=== PATIENT | female | born 1985 | race African-American/Black ===

== ENCOUNTER 2017-12-29 17:03 | Emergency (ER) | payer SELFPAY ==
[~2017-12-29] VITALS: Ht 165.1 cm; Wt 109.3 kg
[2017-12-29 17:30] LABS: BILIRUBIN,URINE NEGATIVE (NEG); CLARITY,URINE CLEAR; COLOR,URINE YELLOW; NITRITE,URINE NEGATIVE (NEG); PH,URINE 6.5; PROTEIN,URINE NEGATIVE (NEG-TRACE)
--- NOTE | 2017-12-29 17:33 | PHYS DOC ---
Past Medical History Past Medical History: Diabetes-Type II, Hypertension Past Surgical History: Alcohol Use: None Drug Use: None Adult General Chief Complaint Chief Complaint: VAGINAL BLEEDING HPI HPI Patient is a 32 year old female with history of hypertension, diabetes type 2, who presents today complaining of vaginal bleeding for 2 weeks. Patient states she goes through 4 tampons per day. Patient denies any abdominal pain. Denies any nausea vomiting. She states sometimes she passes clots. She states she is in a lesbian relationship hence is not . Denies any concerns for STDs. Patient denies being on any hormones, she states the last time she took control was 1 year ago. Review of Systems Review of Systems Constitutional: Denies fever or chills [] Eyes: Denies change in visual acuity, redness, or eye pain [] HENT: Denies nasal congestion or sore throat [] Respiratory: Denies cough or shortness of breath [] Cardiovascular: No additional information not addressed in HPI [] GI: Reports vaginal bleeding for 2 weeks. Denies abdominal pain, nausea, vomiting, bloody stools or diarrhea [] : Denies dysuria or hematuria [] Musculoskeletal: Denies back pain or joint pain [] Integument: Denies rash or skin lesions [] Neurologic: Denies headache, focal weakness or sensory changes [] All other systems were reviewed and found to be within normal limits, except as documented in this note. Allergies Allergies Allergies Coded Allergies Type Severity Reaction Last Updated Verified No Known Drug Allergies 12/29/17 No Physical Exam Physical Exam Constitutional: Well developed, well nourished, no acute distress, non-toxic appearance. [] HENT: Normocephalic, atraumatic, bilateral external ears normal, oropharynx moist, no oral exudates, nose normal. [] Eyes: PERRLA, EOMI, conjunctiva normal, no discharge. [] Neck: Normal range of motion, no tenderness, supple, no stridor. [] Cardiovascular:Heart rate regular rhythm, no murmur [] Lungs & Thorax: Bilateral breath sounds clear to auscultation [] Abdomen: Bowel sounds normal, soft, no tenderness, no masses, no pulsatile masses. [] Pelvic exam External pelvic appears normal, cervix is not well visualized due to body habitus, no adnexal tenderness, trace amount of brownish discharge in the vaginal vault suspicious of spotting. No CMT. Skin: Warm, dry, no erythema, no rash. [] Back: No tenderness, no CVA tenderness. [] Extremities: No tenderness, no cyanosis, no clubbing, ROM intact, no edema. [] Neurologic: Alert and oriented X 3, normal motor function, normal sensory function, no focal deficits noted. [] Psychologic: Affect normal, judgement normal, mood normal. [] Current Patient Data Vital Signs Vital Signs Date Time Temp Pulse Resp B/P (MAP) Pulse Ox O2 Delivery O2 Flow Rate FiO2 12/29/17 19:01 74 16 109/63 (78) 98 Room Air 12/29/17 17:14 98.2 98.2 Lab Values Laboratory Tests Test 12/29/17 07:24 12/29/17 17:20 12/29/17 18:05 Urine Collection Type Clean catch Urine Color Yellow Urine Clarity Clear Urine pH 6.5 Urine Specific [place] 1.020 Urine Protein Negative mg/dL (NEG-TRACE) Urine Glucose (UA) Negative mg/dL (NEG) Urine Ketones (Stick) Negative mg/dL (NEG) Urine Blood Negative (NEG) Urine Nitrite Negative (NEG) Urine Bilirubin Negative (NEG) Urine Urobilinogen Dipstick 1.0 mg/dL (0.2 mg/dL) Urine Leukocyte Esterase Negative (NEG) Urine RBC 0 /HPF (0-2) Urine WBC 0 /HPF (0-4) Urine Squamous Epithelial Cells Mod /LPF Urine Bacteria 0 /HPF (0-FEW) Urine Mucus Mod /LPF POC Urine HCG, Qualitative Hcg negative (Negative) White Blood Count 7.9 x10^3/uL (4.0-11.0) Red Blood Count 5.08 x10^6/uL (3.50-5.40) Hemoglobin 14.5 g/dL (12.0-15.5) Hematocrit 42.1 % (36.0-47.0) Mean Corpuscular Volume 83 fL (79-100) Mean Corpuscular Hemoglobin 29 pg (25-35) Mean Corpuscular Hemoglobin Concent 35 g/dL (31-37) Red Cell Distribution Width 13.3 % (11.5-14.5) Platelet Count 315 x10^3/uL (140-400) Neutrophils (%) (Auto) 49 % (31-73) Lymphocytes (%) (Auto) 37 % (24-48) Monocytes (%) (Auto) 7 % (0-9) Eosinophils (%) (Auto) 5 % (0-3) H Basophils (%) (Auto) 1 % (0-3) Neutrophils # (Auto) 3.9 x10^3uL (1.8-7.7) Lymphocytes # (Auto) 2.9 x10^3/uL (1.0-4.8) Monocytes # (Auto) 0.6 x10^3/uL (0.0-1.1) Eosinophils # (Auto) 0.4 x10^3/uL (0.0-0.7) Basophils # (Auto) 0.1 x10^3/uL (0.0-0.2) Laboratory Tests 12/29/17 18:05 Microbiology 12/29/17 Wet Prep - Final, Complete EKG EKG [] Radiology/Procedures Radiology/Procedures [] Course & Med Decision Making Course & Med Decision Making Pertinent Labs and Imaging studies reviewed. (See chart for details) This is a 32-year-old female patient presenting to the ED today with complaints of vaginal bleeding for 2 weeks. On physical exam patient had trace amount of brownish discharge in the vaginal vault. Highly suspect she has been spotting. Hemoglobin and hematocrit are normal, negative urine hCG, urine analysis is negative for infection, wet prep positive for BV, discharge and Flagyl. Pelvic ultrasound was negative for any acute findings. Patient will be discharged home and instructed to follow-up with her OUTREACH WORKER for dysfunctional uterine bleeding. She was provided return precautions and discharged in stable condition. Staff Physician Addendum: I was working in the ER during the course of this patient's visit. I was available for consultation as needed, but I was not directly involved in the care of this patient. Dragon Disclaimer Dragon Disclaimer This electronic medical record was generated, in whole or in part, using a voice recognition dictation system. Departure Departure Impression: Primary Impression: Dysfunctional uterine bleeding Additional Impression: Bacterial vaginosis Disposition: HOME, SELF-CARE Condition: STABLE Referrals: KRISTIAN ALTMAN MD follow up next week with your OBGYN Patient Instructions: Bacterial Vaginosis, [id number], Uterine Bleeding, Dysfunctional Additional Instructions: You were evaluated in the emergency room for vaginal bleeding. We recommend you contact your OUTREACH WORKER in the course of next week and set up a follow-up appointment. Come back to the emergency room at any point symptoms worsen. UA noted to have bacterial vaginosis. Complete the prescribed antibiotics. Scripts Metronidazole (FLAGYL) 500 Mg Tablet 1 TAB PO BID, #14 TAB Prov: NASRIN MORAN APRN 12/29/17 Problem Qualifiers NASRIN MORAN APRN Dec 29, 2017 17:33 HENRI GUTIERREZ MD Dec 30, 2017 05:13
[2017-12-29 17:52] LABS: BACTERIA,URINE 0 /HPF (0-FEW); RBC,URINE 0 /HPF (0-2); SQUAMOUS EPITHELIAL CELL,UR MOD /LPF; WBC,URINE 0 /HPF (0-4)
[2017-12-29 18:17] LABS: BASO # 0.1 x10^3/uL (0.0-0.2); BASO % 1 % (0-3); EOS # 0.4 x10^3/uL (0.0-0.7); EOS % 5 % (0-3); HEMATOCRIT 42.1 % (36.0-47.0); HEMOGLOBIN 14.5 g/dL (12.0-15.5); LYMPH # 2.9 x10^3/uL (1.0-4.8); LYMPH % 37 % (24-48); MEAN CORPUSCULAR HEMOGLOBIN 29 pg (25-35); MEAN CORPUSCULAR HGB CONC 35 g/dL (31-37); MEAN CORPUSCULAR VOLUME 83 fL (79-100); MONO # 0.6 x10^3/uL (0.0-1.1); MONO % 7 % (0-9); NEUT # 3.9 x10^3uL (1.8-7.7); NEUT % 49 % (31-73); PLATELET COUNT 315 x10^3/uL (140-400); RED BLOOD COUNT 5.08 x10^6/uL (3.50-5.40); RED CELL DISTRIBUTION WIDTH 13.3 % (11.5-14.5); WHITE BLOOD COUNT 7.9 x10^3/uL (4.0-11.0)
[2017-12-29] MEDS ORDERED: METR500T PO (18:33)
--- NOTE | 2017-12-29 18:58 | RAD ---
Indication:VAGINAL BLEEDING X'S 2 WEEKS TECHNIQUE: Grayscale, color Doppler and spectral waveform images of the pelvis obtained. COMPARISON:None FINDINGS: The uterus is anteverted and measures 10.0 x 4.2 x 5.5 cm. Endometrial stripe measures 8 mm in thickness and is within normal limits. No endometrial vascularity. The right ovary measures 5.0 x 2.8 x 3.7 cm and demonstrates evidence of blood flow. The left ovary measures 4.1 x 3.1 x 3.4 cm and demonstrates evidence of blood flow. Cervix within normal limits. IMPRESSION: 1. Endometrial thickness within normal limits. 2. Bilateral ovaries demonstrate evidence of blood flow. Electronically signed by: Dewayne Benavides DO (12/29/2017 6:54 PM) [facility]
[2017-12-29 19:01] VITALS: BP 109/63
[2017-12-30 15:25] LABS: GC PROBE Negative (Negative)
== END 2017-12-29 19:02 | disposition home or self-care (01) ==
LOC: ER 17:03
DX: N76.0 Acute vaginitis (principal); N93.8 Other specified abnormal uterine and vaginal bleeding; B96.89 Other specified bacterial agents as the cause of diseases classified elsewhere; E11.9 Type 2 diabetes mellitus without complications; I10 Essential (primary) hypertension; Z98.890 Other specified postprocedural states
CPT/HCPCS: 36415; 76830; 76856; 81001; 81025; 85025; 87491; 87591; 99285; Q0111

== ENCOUNTER 2018-01-30 13:48 | Emergency (ER) | payer OTHER ==
[2018-01-30 14:17] VITALS: BP 136/71
--- NOTE | 2018-01-30 14:51 | PHYS DOC ---
Past Medical History Past Medical History: Diabetes-Type II, Hypertension Past Surgical History: Alcohol Use: None Drug Use: None Adult General Chief Complaint Chief Complaint: SKIN RASH/ABSCESS HPI HPI Patient is a 32 year old female presents with rash. She's been using some different soap for the last 2 months but she has had 3 days of itchy rash noted on the chest back and legs. No respiratory symptoms at all. No other symptoms no fever Allergies Allergies Allergies Coded Allergies Type Severity Reaction Last Updated Verified No Known Drug Allergies 12/29/17 No Physical Exam Physical Exam Constitutional: Well developed, over nourished, no acute distress, non-toxic appearance. [] HENT: Normocephalic, atraumatic, bilateral external ears normal, oropharynx moist, no oral exudates, nose normal. []No oropharyngeal swelling Eyes: PERRLA, EOMI, conjunctiva normal, no discharge. [] Neck: Normal range of motion, no tenderness, supple, no stridor. [] Pulmonary: Normal respiratory effort no increased work of breathing no obvious chest wall trauma Abdomen: Bowel sounds normal, soft, no tenderness, no masses, no pulsatile masses. [] Skin: Scattered erythematous rash with some urticaria noted some raised lesions on the back trunk and arms no palm findings Back: No tenderness, no CVA tenderness. [] Extremities: No tenderness, no cyanosis, no clubbing, ROM intact, no edema. [] Neurologic: Alert and oriented X 3, normal motor function, normal sensory function, no focal deficits noted. [] Psychologic: Affect normal, judgement normal, mood normal. [] Current Patient Data Vital Signs Vital Signs Date Time Temp Pulse Resp B/P (MAP) Pulse Ox O2 Delivery O2 Flow Rate FiO2 01/30/18 14:17 97.6 79 16 97 Room Air 97.6 EKG EKG [] Radiology/Procedures Radiology/Procedures [] Course & Med Decision Making Course & Med Decision Making Pertinent Labs and Imaging studies reviewed. (See chart for details) []Rash itchy probably contact dermatitis tried Benadryl patient has not been using anything yet. hx diabetes requests test strips, rx given for her. Dragon Disclaimer Dragon Disclaimer This electronic medical record was generated, in whole or in part, using a voice recognition dictation system. Departure Departure Impression: Primary Impression: Rash Disposition: 01 HOME, SELF-CARE Condition: STABLE Patient Instructions: Contact Dermatitis, Hnar-gb-Leud HENRI GUTIERREZ MD Jan 30, 2018 14:51
== END 2018-01-30 14:58 | disposition home or self-care (01) ==
LOC: ER 13:48
DX: R21 Rash and other nonspecific skin eruption (principal); E11.9 Type 2 diabetes mellitus without complications; I10 Essential (primary) hypertension
CPT/HCPCS: 99281

== ENCOUNTER → 2018-01-30 | Outpatient (CLI) | payer OTHER ==
[~2018-01-30] MED LIST: METR500T PO
[2018-01-30 14:17] VITALS: BP 136/71
[2018-01-30 17:08] LABS: ALBUMIN 3.9 g/dL (3.4-5.0); CALCIUM 9.4 mg/dL (8.5-10.1); CREATININE 0.7 mg/dL (0.6-1.0); GFR 118.1; POTASSIUM 3.9 mmol/L (3.5-5.1); TOTAL BILIRUBIN 0.6 mg/dL (0.2-1.0); TOTAL PROTEIN 7.7 g/dL (6.4-8.2)
[2018-01-30 17:09] LABS: CHOLESTEROL/HDL RATIO 4.8
[2018-01-30 17:22] LABS: FREE T4 1.02 ng/dL (0.76-1.46); THYROID STIM HORMONE (TSH) 5.014 uIU/mL (0.358-3.74)
[2018-01-31 04:18] LABS: HEMOGLOBIN A1C 6.5 % (4.8-5.6)
== END | disposition home or self-care (01) ==
LOC: LAB 16:15
PROVIDERS: ATTEND Obstetrics & Gynecology
DX: Z01.411 Encounter for gynecological examination (general) (routine) with abnormal findings (principal); I10 Essential (primary) hypertension; E11.9 Type 2 diabetes mellitus without complications
CPT/HCPCS: 36415; 80053; 80061; 83036; 84439; 84443; 84481

== ENCOUNTER → 2018-03-28 | Outpatient (CLI) | payer OTHER | END | disposition home or self-care (01) | LOC: LAB 12:16 | PROVIDERS: ATTEND Obstetrics & Gynecology | DX: N93.9 Abnormal uterine and vaginal bleeding, unspecified (principal); E03.9 Hypothyroidism, unspecified | CPT/HCPCS: 36415; 84443 ==

== ENCOUNTER → 2018-06-26 | Outpatient (CLI) | payer OTHER ==
[~2018-06-26] MED LIST changes: +CEPH-264 PO; +MUPI22OI2 TP
--- NOTE | 2018-06-26 16:27 | RAD ---
EXAM: Pelvic sonogram. HISTORY: Abnormal uterine bleeding. TECHNIQUE: 12/29/2017. COMPARISON: Sonographic imaging of the pelvis was performed. FINDINGS: The uterus measures 11.0 x 3.7 x 4.9 cm. The endometrial stripe measures 7 mm in thickness. The ovaries are normal in size and demonstrate normal blood flow. No pelvic free fluid is seen. IMPRESSION: Unremarkable pelvic sonogram. Electronically signed by: Melida Pichardo MD (06/26/2018 4:24 PM) [id number]
== END ==
LOC: US 11:18
PROVIDERS: ATTEND Obstetrics & Gynecology
DX: N93.9 Abnormal uterine and vaginal bleeding, unspecified (principal); E03.9 Hypothyroidism, unspecified
CPT/HCPCS: 76856

== ENCOUNTER 2018-07-05 16:38 | Emergency (ER) | payer OTHER ==
[~2018-07-05] VITALS: Ht 162.6 cm; Wt 111.6 kg
[~2018-07-05 16:38] MED LIST changes: -CEPH-264 PO; -MUPI22OI2 TP
[2018-07-05 17:15] VITALS: BP 161/84
[2018-07-05] MEDS ORDERED: CEPH-264 PO (18:10)
[2018-07-05] MEDS ORDERED: MUPI22OI2 TP (18:10)
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
== END 2018-07-05 19:12 | disposition home or self-care (01) ==
LOC: ER 16:38
DX: S90.412A Abrasion, left great toe, initial encounter (principal); E11.9 Type 2 diabetes mellitus without complications; I10 Essential (primary) hypertension; Z98.890 Other specified postprocedural states; W23.0XXA Caught, crushed, jammed, or pinched between moving objects, initial encounter; Y93.89 Activity, other specified; Y92.89 Other specified places as the place of occurrence of the external cause; Y99.8 Other external cause status
CPT/HCPCS: 73630; 99283

== ENCOUNTER 2019-05-15 17:54 | Emergency (ER) | payer OTHER ==
[~2019-05-15] VITALS: Ht 165.1 cm; Wt 105.4 kg
[~2019-05-15 17:54] MED LIST changes: +CEPH-264 PO; +MUPI22OI2 TP
[2019-05-15 18:17] LABS: BILIRUBIN,URINE NEGATIVE (NEG); CLARITY,URINE CLEAR; COLOR,URINE YELLOW; NITRITE,URINE NEGATIVE (NEG); PROTEIN,URINE NEGATIVE (NEG-TRACE); UROBILINOGEN,URINE 0.2 mg/dL (0.2 mg/dL)
[2019-05-15 18:21] LABS: SQUAMOUS EPITHELIAL CELL,UR MOD /LPF
[2019-05-15 18:22] LABS: AMORPHOUS SEDIMENT,UR PRESENT /HPF; BACTERIA,URINE FEW /HPF (0-FEW)
[2019-05-15 18:51] LABS: BASO # 0.1 x10^3/uL (0.0-0.2); BASO % 1 % (0-3); EOS # 0.3 x10^3/uL (0.0-0.7); EOS % 4 % (0-3); HEMATOCRIT 43.8 % (36.0-47.0); HEMOGLOBIN 14.9 g/dL (12.0-15.5); LYMPH # 2.4 x10^3/uL (1.0-4.8); LYMPH % 31 % (24-48); MEAN CORPUSCULAR HEMOGLOBIN 28 pg (25-35); MEAN CORPUSCULAR HGB CONC 34 g/dL (31-37); MEAN CORPUSCULAR VOLUME 82 fL (79-100); MONO # 0.7 x10^3/uL (0.0-1.1); MONO % 9 % (0-9); NEUT # 4.2 x10^3/uL (1.8-7.7); NEUT % 55 % (31-73); PLATELET COUNT 313 x10^3/uL (140-400); RED BLOOD COUNT 5.34 x10^6/uL (3.50-5.40); RED CELL DISTRIBUTION WIDTH 12.9 % (11.5-14.5); WHITE BLOOD COUNT 7.7 x10^3/uL (4.0-11.0)
[2019-05-15] MEDS ORDERED: IV NORMAL SALINE 1000ML BAG 1,000 ML IV ONE (19:00)
[2019-05-15 19:17] LABS: CREATININE 0.6 mg/dL (0.6-1.0); GFR 140.2; POTASSIUM 4.4 mmol/L (3.5-5.1)
[2019-05-15 19:24] LABS: ALBUMIN 3.4 g/dL (3.4-5.0); TOTAL BILIRUBIN 0.9 mg/dL (0.2-1.0); TOTAL PROTEIN 6.9 g/dL (6.4-8.2)
--- NOTE | 2019-05-15 21:51 | PHYS DOC ---
Past Medical History Past Medical History: Diabetes-Type II, Hypertension Past Surgical History: Alcohol Use: None Drug Use: None Adult General Chief Complaint Chief Complaint: BLOOD SUGAR PROBLEM HPI HPI Patient is a 33 year old [f__sex] who presents with [] Review of Systems Review of Systems Constitutional: Denies fever or chills [] Eyes: Denies change in visual acuity, redness, or eye pain [] HENT: Denies nasal congestion or sore throat [] Respiratory: Denies cough or shortness of breath [] Cardiovascular: No additional information not addressed in HPI [] GI: Denies abdominal pain, nausea, vomiting, bloody stools or diarrhea [] : Denies dysuria or hematuria [] Musculoskeletal: Denies back pain or joint pain [] Integument: Denies rash or skin lesions [] Neurologic: Denies headache, focal weakness or sensory changes [] Endocrine: Denies polyuria or polydipsia [] All other systems were reviewed and found to be within normal limits, except as documented in this note. Current Medications Current Medications Current Medications Medications (Trade) Dose Ordered Sig/Char Start Time Stop Time Status Last Admin Dose Admin Sodium Chloride 1,000 ml @ 1,000 mls/hr 1X ONCE 05/15/19 19:00 05/15/19 19:59 DC 05/15/19 18:50 1,000 MLS/HR Allergies Allergies Allergies Coded Allergies Type Severity Reaction Last Updated Verified No Known Drug Allergies 12/29/17 No Physical Exam Physical Exam Constitutional: Well developed, well nourished, no acute distress, non-toxic appearance. [] HENT: Normocephalic, atraumatic, bilateral external ears normal, oropharynx moist, no oral exudates, nose normal. [] Eyes: PERRLA, EOMI, conjunctiva normal, no discharge. [] Neck: Normal range of motion, no tenderness, supple, no stridor. [] Cardiovascular:Heart rate regular rhythm, no murmur [] Lungs & Thorax: Bilateral breath sounds clear to auscultation [] Abdomen: Bowel sounds normal, soft, no tenderness, no masses, no pulsatile masses. [] Skin: Warm, dry, no erythema, no rash. [] Back: No tenderness, no CVA tenderness. [] Extremities: No tenderness, no cyanosis, no clubbing, ROM intact, no edema. [] Neurologic: Alert and oriented X 3, normal motor function, normal sensory function, no focal deficits noted. [] Psychologic: Affect normal, judgement normal, mood normal. [] Current Patient Data Vital Signs Vital Signs Date Time Temp Pulse Resp B/P (MAP) Pulse Ox O2 Delivery O2 Flow Rate FiO2 05/15/19 18:00 97.6 100 18 143/82 (102) 95 Room Air 97.6 Lab Values Laboratory Tests Test 05/15/19 18:05 05/15/19 18:10 05/15/19 18:11 05/15/19 18:30 Urine Collection Type Unknown Urine Color Yellow Urine Clarity Clear Urine pH 6.0 Urine Specific [place] >=1.030 Urine Protein Negative mg/dL (NEG-TRACE) Urine Glucose (UA) >=1000 mg/dL (NEG) Urine Ketones (Stick) Negative mg/dL (NEG) Urine Blood Negative (NEG) Urine Nitrite Negative (NEG) Urine Bilirubin Negative (NEG) Urine Urobilinogen Dipstick 0.2 mg/dL (0.2 mg/dL) Urine Leukocyte Esterase Negative (NEG) Urine RBC 1-2 /HPF (0-2) Urine WBC 1-4 /HPF (0-4) Urine Squamous Epithelial Cells Mod /LPF Urine Amorphous Sediment Present /HPF Urine Bacteria Few /HPF (0-FEW) Urine Mucus Slight /LPF POC Urine HCG, Qualitative Hcg negative (Negative) Glucose (Fingerstick) 401 mg/dL (70-99) H White Blood Count 7.7 x10^3/uL (4.0-11.0) Red Blood Count 5.34 x10^6/uL (3.50-5.40) Hemoglobin 14.9 g/dL (12.0-15.5) Hematocrit 43.8 % (36.0-47.0) Mean Corpuscular Volume 82 fL (79-100) Mean Corpuscular Hemoglobin 28 pg (25-35) Mean Corpuscular Hemoglobin Concent 34 g/dL (31-37) Red Cell Distribution Width 12.9 % (11.5-14.5) Platelet Count 313 x10^3/uL (140-400) Neutrophils (%) (Auto) 55 % (31-73) Lymphocytes (%) (Auto) 31 % (24-48) Monocytes (%) (Auto) 9 % (0-9) Eosinophils (%) (Auto) 4 % (0-3) H Basophils (%) (Auto) 1 % (0-3) Neutrophils # (Auto) 4.2 x10^3/uL (1.8-7.7) Lymphocytes # (Auto) 2.4 x10^3/uL (1.0-4.8) Monocytes # (Auto) 0.7 x10^3/uL (0.0-1.1) Eosinophils # (Auto) 0.3 x10^3/uL (0.0-0.7) Basophils # (Auto) 0.1 x10^3/uL (0.0-0.2) Test 05/15/19 19:00 Sodium Level 135 mmol/L (136-145) L Potassium Level 4.4 mmol/L (3.5-5.1) Chloride Level 101 mmol/L (98-107) Carbon Dioxide Level 23 mmol/L (21-32) Anion Gap 11 (6-14) Blood Urea Nitrogen 10 mg/dL (7-20) Creatinine 0.6 mg/dL (0.6-1.0) Estimated GFR (Cockcroft-Gault) 140.2 BUN/Creatinine Ratio 17 (6-20) Glucose Level 387 mg/dL (70-99) H Calcium Level 9.0 mg/dL (8.5-10.1) Total Bilirubin 0.9 mg/dL (0.2-1.0) Aspartate Amino Transferase (AST) 18 U/L (15-37) Alanine Aminotransferase (ALT) 41 U/L (14-59) Alkaline Phosphatase 110 U/L (46-116) Total Protein 6.9 g/dL (6.4-8.2) Albumin 3.4 g/dL (3.4-5.0) Albumin/Globulin Ratio 1.0 (1.0-1.7) Laboratory Tests 05/15/19 18:30 Laboratory Tests 05/15/19 19:00 EKG EKG [] Radiology/Procedures Radiology/Procedures [] Course & Med Decision Making Course & Med Decision Making Pertinent Labs and Imaging studies reviewed. (See chart for details) [] Dragon Disclaimer Dragon Disclaimer This electronic medical record was generated, in whole or in part, using a voice recognition dictation system. Departure Departure Impression: Primary Impression: Breast lump on right side at 3 o'clock position Additional Impressions: Hyperglycemia due to type 2 diabetes mellitus Abscess of breast, right Disposition: 01 HOME, SELF-CARE Condition: STABLE Referrals: LI HANSEN MD (PCP) BRONWYN QUARLES MD Patient Instructions: Abscess, [id number], Cellulitis, Gvfb-[id number], Hyperglycemia, Vtlh-[id number] Additional Instructions: Fill the prescriptions and use as directed. Call Dr. Sol's office tomorrow for close follow up and further evaluation and treatment of breast abscess/ lump. Follow up with Dr. Hansen as planned about hyperglycemia. Return to the ER if symptoms worsen. Scripts Cephalexin (CEPHALEXIN) 500 Mg Capsule 1 CAP PO QID for 10 Days, #40 CAP 0 Refills Prov: PAULINA JONES APRN 05/15/19 Sulfamethoxazole/Trimethoprim (BACTRIM DS TABLET) 1 Each Tablet 1 TAB PO BID for 10 Days, #20 TAB 0 Refills Prov: PAULINA JONES APRN 05/15/19 Problem Qualifiers Additional Impressions: Hyperglycemia due to type 2 diabetes mellitus Diabetes mellitus prison insulin use: without prison use Qualified Codes: E11.65 - Type 2 diabetes mellitus with hyperglycemia PAULINA JONES SENIOR LICENSING MANAGER May 15, 2019 21:51
--- NOTE | 2019-05-15 22:00 | RAD ---
Examination: Ultrasound abdomen limited HISTORY: History of tender bump right breast Comparison: None available Findings/ impression: There is a 1.1 x 0.6 x 0.5 cm hypoechogenicity identified in the right breast at 3:00 position at the site of lump could be abscess. However underlying mass is not completely excluded. Correlate clinically. Close interval follow-up ultrasound in 7 days and mammogram can be considered. BI-RADS Category 0. Additional imaging Electronically signed by: Coy Mancera MD (05/15/2019 9:57 PM) [facility]
[2019-05-15 22:05] VITALS: BP 138/77
[2019-05-15] MEDS ORDERED: SULF1TAB24 PO (22:08)
[2019-05-15] MEDS ORDERED: CEPH500C PO (22:08)
== END 2019-05-15 22:25 | disposition home or self-care (01) ==
LOC: ER 17:54
DX: E11.65 Type 2 diabetes mellitus with hyperglycemia (principal); N61.1 Abscess of the breast and nipple; I10 Essential (primary) hypertension
CPT/HCPCS: 36415; 76641; 80053; 81001; 81025; 82962; 85025; 96360; 99285; J7030